=== PATIENT | male | born 1975 | race African-American/Black ===

== ENCOUNTER 2016-10-29 20:13 | Emergency (ER) | payer MEDICAID ==
[~2016-10-29] VITALS: Ht 264.2 cm; Wt 95.0 kg
[2016-10-30 00:02] LABS: BASOPHILS % 0.7 % (0.0-2.0); EOSINOPHILS % 7.6 % (0.0-5.0); HEMATOCRIT. 37.2 % (42.0-52.0); HEMOGLOBIN. 12.4 g/dL (14.0-18.0); LYMPHOCYTES % 16.6 % (20.0-50.0); MEAN PLATELET VOLUME 7.7 fl (7.4-10.4); NEUTROPHILS % 67.1 % (40.0-76.0); PLATELET 175 x1000/uL (130-400); RED BLOOD CELL COUNT 4.43 mill/uL (4.7-6.1); RED CELL DISTRIBUTION WIDTH 15.2 % (11.6-14.6)
[2016-10-30 00:04] LABS: CHLORIDE 112 mEq/L (98-107)
[2016-10-30 00:08] LABS: INR 1.1; PARTIAL THROMBOPLASTIN TIME 26.6 sec (24.0-34.0); PROTHROMBIN TIME 11.4 sec
[2016-10-30 00:14] LABS: CARBON DIOXIDE 20 mEq/L (21-32)
[2016-10-30 01:58] VITALS: BP 136/80
== END 2016-10-30 02:46 | disposition home or self-care (01) ==
LOC: ER 21:36
DX: S31.31XA Laceration without foreign body of scrotum and testes, initial encounter (principal); R58 Hemorrhage, not elsewhere classified; N43.3 Hydrocele, unspecified; N45.1 Epididymitis; I12.9 Hypertensive chronic kidney disease with stage 1 through stage 4 chronic kidney disease, or unspecified chronic kidney disease; E11.22 Type 2 diabetes mellitus with diabetic chronic kidney disease; N18.4 Chronic kidney disease, stage 4 (severe); Z99.2 Dependence on renal dialysis; Z79.4 Long term (current) use of insulin; X58.XXXA Exposure to other specified factors, initial encounter; Y93.89 Activity, other specified; Y92.098 Other place in other non-institutional residence as the place of occurrence of the external cause
CPT/HCPCS: 36415; 76870; 80053; 82962; 85025; 85610; 85730; 87040; 93976; 99285

== ENCOUNTER 2019-03-12 13:46 | Emergency (ER) | payer MEDICAID ==
[~2019-03-12] VITALS: Ht 172.7 cm; Wt 88.0 kg
[2019-03-12 14:39] VITALS: BP 148/95
[2019-03-12] MEDS ORDERED: BACITRACIN 15GM TUBE TOP NR (16:45)
[2019-03-12] MEDS ORDERED: BACITRACIN ZINC OINT UDPKT TOP ONE (16:45)
== END 2019-03-12 17:03 | disposition home or self-care (01) ==
LOC: ER 15:57
DX: S61.306A Unspecified open wound of right little finger with damage to nail, initial encounter (principal); W25.XXXA Contact with sharp glass, initial encounter; Y93.89 Activity, other specified; Y92.89 Other specified places as the place of occurrence of the external cause; Y99.8 Other external cause status; E11.9 Type 2 diabetes mellitus without complications; I10 Essential (primary) hypertension
CPT/HCPCS: 99283